=== PATIENT | male | born 1950 | race Caucasian/White ===

== ENCOUNTER 2022-05-21 12:35 | Emergency (ER) | payer MEDICARE, OTHER, SELFPAY ==
[2022-05-21 12:42] VITALS: BP 161/90; PULSE 82; RESP 18; TEMP 36.6; O2SAT 97; BMI 26.4
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
[2022-05-21] MEDS: LIDOCAINE/PRILOCAINE 5 GM TOP (12:57)
[2022-05-21] MEDS: BACITRACIN OINT 0.9 GM PCKT 1 APPLIC TOP (12:57)
[2022-05-21] MEDS: ACETAMINOPHEN 325 MG TABLET 975 MG PO (13:26)
[2022-05-21] MEDS: LIDOCAINE 2% INJ MDV 20 ML (14:20)
[2022-05-21] MEDS: BUPIVACAINE 0.5% W/ EPI (PF) 30 ML VIAL (14:20)
[2022-05-21] MEDS: TET,DIPH,PERTUSS(ACELL),VAC/PF 0.5 ML SYRINGE IM (14:35)
[2022-05-21] MEDS: cephALEXin 250 MG CAPSULE 500 MG PO (15:10)
[2022-05-21 15:17] VITALS: BP 153/96; PULSE 76; O2SAT 98
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
== END 2022-05-21 15:18 | disposition home or self-care (01) ==
PROVIDERS: Emergency Provider Nurse Practitioner Critical Care Medicine
DX: S01.511A Laceration without foreign body of lip, initial encounter (principal); R07.9 Chest pain, unspecified; S40.812A Abrasion of left upper arm, initial encounter; S40.811A Abrasion of right upper arm, initial encounter; S80.812A Abrasion, left lower leg, initial encounter; S80.811A Abrasion, right lower leg, initial encounter; S00.81XA Abrasion of other part of head, initial encounter; V18.2XXA Unspecified pedal cyclist injured in noncollision transport accident in nontraffic accident, initial encounter; Z23 Encounter for immunization
CPT/HCPCS: 12011; 70450; 71045; 72125; 90471; 99284; 90715